=== PATIENT | female | born 1955 | race Caucasian/White ===

== ENCOUNTER 2018-07-01 19:54 | Emergency (ER) | payer OTHER ==
[~2018-07-01] VITALS: Ht 157.5 cm; Wt 50.9 kg
[2018-07-01 20:59] LABS: BASO % 0.2 % (0.0-1.0); HEMATOCRIT 38.2 % (36.0-47.0); HEMOGLOBIN 12.2 g/dl (12.0-15.5); LYMPH # 1.4 10^3/uL (1.5-4.5); MEAN CORPUSCULAR HEMOGLOBIN 29.9 pg (27.0-33.0); MEAN CORPUSCULAR HGB CONC 31.9 g/dl (32.0-36.5); MEAN CORPUSCULAR VOLUME 93.6 fl (80.0-96.0); MONO # 0.6 10^3/uL (0.0-0.8); MONO % 10.1 % (0.0-5.0); NEUTROPHILS # 4.1 10^3/uL (1.8-7.7); NEUTROPHILS % 66.4 % (36.0-66.0); PLATELET COUNT, AUTOMATED 193 10^3/uL (150-450); RED BLOOD COUNT 4.08 10^6/uL (4.00-5.40); WHITE BLOOD COUNT 6.2 10^3/uL (4.0-10.0)
[2018-07-01] MEDS ORDERED: FURO20TA2 PO (21:06)
[2018-07-01] MEDS ORDERED: PLAV1TAB2 PO (21:06)
[2018-07-01] MEDS ORDERED: POTA10TA17 PO (21:06)
[2018-07-01] MEDS ORDERED: METO50TA7 PO (21:06)
[2018-07-01] MEDS ORDERED: ENAL10TA2 PO (21:06)
[2018-07-01] MEDS ORDERED: CRES20TA2 PO (21:06)
[2018-07-01 21:09] LABS: INR 1.72; PROTHROMBIN TIME 20.5 SECONDS (12.1-14.4)
[2018-07-01 21:12] LABS: D-DIMER QUANT 1093.04 ng/ml (<500)
[2018-07-01] MEDS ORDERED: methylPREDNISolone INJ 125 MG/2 ML VIAL (J2930) IV ONE (21:15)
[2018-07-01 21:17] LABS: BLOOD UREA NITROGEN 24 MG/DL (7-18); CALCIUM LEVEL 8.8 MG/DL (8.8-10.2); CARBON DIOXIDE LEVEL 25 MEQ/L (21-32); CHLORIDE LEVEL 106 MEQ/L (98-107); CK-MB VALUE MASS < 1.0 NG/ML (<3.6); CPK CREATINE PHOSPHOKINASE 60 U/L (26-192); CREATININE FOR GFR 1.12 MG/DL (0.55-1.30); GLOMERULAR FILTRATION RATE 52.5 (>45); GLUCOSE, FASTING 78 MG/DL (70-100); MB/CK RELATIVE INDEX 1.67 (< OR =4); POTASSIUM SERUM 4.5 MEQ/L (3.5-5.1); SODIUM LEVEL 141 MEQ/L (136-145); TROPONIN I < 0.02 NG/ML (< 0.10)
[2018-07-01] MEDS: IPRATROPIUM 0.5MG/ALBUTEROL 2.5MG INH SOL UD 3ML (DUONEB)(J7620) NEB SCH ×2 (21:19→21:40)
[2018-07-01 22:45] VITALS: BP 117/54
[2018-07-01] MEDS ORDERED: ISOVUE-370 76% 100ML VIAL (Q9967) As Ordered ONE (22:46)
[2018-07-01] MEDS ORDERED: PRED20TA PO (22:55)
--- NOTE | 2018-07-02 06:14 | ECGEPIP ---
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
== END 2018-07-01 23:30 | disposition home or self-care (01) ==
LOC: M ED 19:54
DX: J44.1 Chronic obstructive pulmonary disease with (acute) exacerbation (principal); I25.10 Atherosclerotic heart disease of native coronary artery without angina pectoris; I11.9 Hypertensive heart disease without heart failure; E78.5 Hyperlipidemia, unspecified; Z95.5 Presence of coronary angioplasty implant and graft; Z86.711 Personal history of pulmonary embolism; Z86.718 Personal history of other venous thrombosis and embolism; I71.9 Aortic aneurysm of unspecified site, without rupture; Z87.891 Personal history of nicotine dependence; Z79.899 Other long term (current) drug therapy; Z88.0 Allergy status to penicillin
CPT/HCPCS: 80048; 82550; 82553; 84484; 85025; 85379; 85610; 93005; 93041; 94640; 94760; 96374; 99285; J2930